=== PATIENT | female | born 1950 | race Caucasian/White ===

== ENCOUNTER 2018-07-28 10:00 | Outpatient (RCR) | payer MEDICARE, OTHER, SELFPAY | END 2018-08-15 09:09 | LOC: CAR 10:00 | PROVIDERS: PCP Internal Medicine; Visit Provider Internal Medicine Cardiovascular Disease | DX: I20.9 Angina pectoris, unspecified (principal) | CPT/HCPCS: 93798 ==

== ENCOUNTER 2021-08-07 15:54 | Emergency (ER) | payer MEDICARE, OTHER, SELFPAY ==
[2021-08-07 16:43] VITALS: BP 185/75; PULSE 65; RESP 16; TEMP 36.2; O2SAT 99; BMI 24.1
--- NOTE | 2021-08-07 16:48 | PC.NURSE ---
History of 2 heart attacks and 4 stents (age 56 and 67)
--- NOTE | 2021-08-07 16:55 | DI.RAD.S_ITS ---
PROCEDURE: XR CHEST 1V INDICATIONS: chest pain TECHNIQUE: One view of the chest was acquired. COMPARISON: None. FINDINGS: Surgical changes and devices: Right upper quadrant surgical clip. Lungs and pleura: Lungs are clear. No pleural effusions or pneumothorax. Mediastinum: Mediastinal contours appear normal. Heart size is normal. Moderate aortic atherosclerotic calcifications. Bones and chest wall: No suspicious bony lesions. Overlying soft tissues appear unremarkable. IMPRESSION: No acute cardiopulmonary abnormality. Dictated by: Daniel Aranda M.D. on 08/07/2021 at 17:26 Approved by: Daniel Aranda M.D. on 08/07/2021 at 17:26
[2021-08-07 17:31] LABS: Add Manual Diff / Slide Review NO; Basophils Absolute Auto 100 /uL (0-100); Basophils Percent Auto 1.4 % (0-2); Eosinophils Absolute Auto 100 /uL (0-450); Eosinophils Percent Auto 1.7 % (2-4); Hematocrit 37.7 % (36-46); Hemoglobin 12.6 g/dL (12.0-16.0); Lymphocytes Absolute Auto 2100 /uL (1100-4500); Lymphocytes Percent Auto 28.7 % (25-40); Mean Corpuscular HGB Conc 33.5 % (30-36); Mean Corpuscular Volume 86.4 fL (80-100); Monocytes Absolute Auto 600 /uL (0-900); Monocytes Percent Auto 7.7 % (3-14); Neutrophils Absolute Auto 4500 /uL (1500-7000); Neutrophils Percent Auto 60.5 % (50-75); Platelet Count 259 X10^3/uL (150-400); Red Blood Cell Count 4.36 X10^6/uL (4.0-5.2); Red Cell Distribution Width 13.6 % (11.6-14.8); White Blood Cell Count 7.4 X10^3/uL (4.5-11.0)
[2021-08-07 17:42] LABS: Alanine Aminotransferase 17 IU/L (<35); Albumin 4.2 g/dL (3.5-5.0); Albumin Globulin Ratio 1.2 (1.0-2.8); Alkaline Phosphatase 51 U/L (38-126); Aspartate Aminotransferase 29 IU/L (14-36); BUN Creatinine Ratio 16.7 (6-22); Bilirubin Total 0.5 mg/dL (0.2-1.3); Blood Urea Nitrogen 12 mg/dL (7-17); Calcium 8.8 mg/dL (8.4-10.2); Carbon Dioxide 29 mmol/L (22-32); Chloride 104 mmol/L (98-107); Creatine Kinase 55 U/L (30-135); Estimated Glomerular Filt Rate > 60 mL/min (>60); Globulin 3.5 g/dL (1.7-4.1); Glucose 150 mg/dL (80-110); Lipase 168 U/L (23-300); Magnesium 1.7 mg/dL (1.6-2.3); Potassium 4.5 mmol/L (3.4-5.1); Sodium 142 mmol/L (137-145); Total Protein 7.7 g/dL (6.3-8.2)
[2021-08-07 17:51] LABS: HEMOLYSIS 76 (0-50)
[2021-08-07 17:54] LABS: Troponin I < 0.012 ng/mL (0.01-0.034)
[2021-08-07 21:12] VITALS: O2SAT 99
[2021-08-07 21:13] VITALS: BP 177/72; PULSE 62; O2SAT 99
[2021-08-07 21:30] VITALS: PULSE 61; O2SAT 97
--- NOTE | 2021-08-07 21:40 | ED_ITS ---
HPI - General Adult General Chief complaint: Syncope Stated complaint: 2 Episodes Blacking Out Time Seen by Provider: 08/07/21 21:25 Source: patient Mode of arrival: Ambulatory History of Present Illness HPI narrative: 71-year-old female who arrives the emergency department today for to episodes that occurred yesterday. She states on 2 separate episodes 1 time when she was in the car with her granddaughter. She states that she felt like she fell asleep in the car. Her granddaughter asked if she was okay and she woke up. She feels like that she was only asleep for a few seconds/minutes when she was woken up by her granddaughter. There was no shaking like activity. She was not confused afterwards. She had no prodrome will symptoms. She states that later in the day she was sitting on the toilet and which she thinks fell asleep once again. This time she was unsure how long that she was asleep but a potentially was close to an hour. She was woken up when her daughter knocked on the bathroom door. She stated that the daughter told her that she was sitting upright on the toilet. Patient states she does not remember the event. Apparently she was somewhat confused afterwards but then very quickly regained senses of where she was. Again no prodrome will symptoms. She has no episodes since then. She did not come into the emergency department until today when she was convinced to come in by the family. She currently has no symptoms. Related Data Allergies Allergy/AdvReac Type Severity Reaction Status Date / Time Penicillins Allergy Verified 08/07/21 16:42 Review of Systems Review of Systems ROS Unobtainable: All systems reviewed & are unremarkable except as noted in HPI and below Patient History Medical History Coronary artery disease Social History Smoking Status: Former smoker Smoking Status: Former smoker alcohol intake frequency: holidays/special occasions only Alcohol type: wine Substance Use Type: does not use Exam Initial Vital Signs Initial Vital Signs: Vital Signs Temperature 97.2 F L 08/07/21 16:43 Pulse Rate 65 08/07/21 16:43 Respiratory Rate 16 08/07/21 16:43 Blood Pressure 185/75 H 08/07/21 16:43 Pulse Oximetry 99 08/07/21 16:43 Const General: cooperative, healthy appearing, comfortable, well developed and well groomed HENNC Head: normal to inspection and normocephalic Eyes Pupils: PERRL EOM: EOM intact bilaterally Resp Effort & Inspection: normal respiratory effort Auscultation: clear to auscultation bilaterally Cardio Rate: regular rate Rhythm: regular rhythm GI Inspection: normal to inspection Skin General: no rashes or lesions noted Neuro General: patient alert, patient awake, patient oriented x3 and moves all extremities Cranial Nerves: CN's II-XI intact bilaterally Cognition: normal cognition Speech: speech normal Gait: normal gait Motor: muscle tone normal throughout Extrem General: normal to inspection and capillary refill normal Psych Appearance: grossly normal and well kempt Course Orders Ordered: ED Orders 08/07/21 16:55 XR chest 1V Stat EKG-12 Lead Stat 08/07/21 17:00 Complete Blood Count AUTO DIFF Stat Comprehensive Metabolic Panel Stat Lipase Stat Magnesium Stat Troponin & CK Cardiac Panel Stat Vital Signs Vital signs: Vital Signs - 8 hr 08/07/21 21:12 08/07/21 21:13 08/07/21 21:30 Pulse Rate 62 61 Respiratory Rate Blood Pressure 177/72 H Pulse Oximetry 99 99 97 08/07/21 21:51 Pulse Rate 61 Respiratory Rate 22 Blood Pressure 180/75 H Pulse Oximetry 96 Medical Decision Making Lab Data Lab results reviewed: Yes I reviewed the patient's lab results. Result diagrams: 08/07/21 17:00 08/07/21 17:00 Labs: Lab Results 08/07/21 08/07/21 Range/Units 17:00 17:00 WBC 7.4 (4.5-11.0) X10^3/uL RBC 4.36 (4.0-5.2) X10^6/uL Hgb 12.6 (12.0-16.0) g/dL Hct 37.7 (36-46) % MCV 86.4 (80-100) fL MCH 29.0 (26-34) PG MCHC 33.5 (30-36) % RDW 13.6 (11.6-14.8) % Plt Count 259 (150-400) X10^3/uL Neut % (Auto) 60.5 (50-75) % Lymph % (Auto) 28.7 (25-40) % [place] % (Auto) 7.7 (3-14) % Eos % (Auto) 1.7 L (2-4) % Baso % (Auto) 1.4 (0-2) % Neut # (Auto) 4500 (0468-4230) /uL Lymph # (Auto) 2100 (1778-4174) /uL [place] # (Auto) 600 (0-900) /uL Eos # (Auto) 100 (0-450) /uL Baso # (Auto) 100 (0-100) /uL Sodium 142 (137-145) mmol/L Potassium 4.5 (3.4-5.1) mmol/L Chloride 104 (98-107) mmol/L Carbon Dioxide 29 (22-32) mmol/L BUN 12 (7-17) mg/dL Creatinine 0.72 (0.52-1.04) mg/dL Estimated GFR > 60 (>60) mL/min BUN/Creatinine Ratio 16.7 (6-22) Glucose 150 H (80-110) mg/dL Calcium 8.8 (8.4-10.2) mg/dL Magnesium 1.7 (1.6-2.3) mg/dL Total Bilirubin 0.5 (0.2-1.3) mg/dL AST 29 (14-36) IU/L ALT 17 (<35) IU/L Alkaline Phosphatase 51 (38-126) U/L Total Creatine Kinase 55 (30-135) U/L CK-MB (CK-2) TNP CK-MB (CK-2) Rel Index TNP Troponin I < 0.012 (0.01-0.034) ng/mL Total Protein 7.7 (6.3-8.2) g/dL Albumin 4.2 (3.5-5.0) g/dL Globulin 3.5 (1.7-4.1) g/dL Albumin/Globulin Ratio 1.2 (1.0-2.8) Lipase 168 (23-300) U/L Imaging Data Chest x-ray: Radiologist's Impression: [address] [address] XRay Report Signed Patient: Svitlana Melendez MR#: [id number] : 1950 Acct:[id number] Age/Sex: 71 / F Date of Service: 08/07/21 Loc: ED Accession Number: [id number] ?? Procedure: XR chest 1V Ordering Provider: Jhonathan Colon MD PROCEDURE:? XR CHEST 1V ? INDICATIONS:? chest pain ? TECHNIQUE:? One view of the chest was acquired.? ? COMPARISON:? None. ? FINDINGS:? ? Surgical changes and devices:? Right upper quadrant surgical clip.? ? Lungs and pleura:? Lungs are clear.? No pleural effusions or pneumothorax.? ? Mediastinum:? Mediastinal contours appear normal.? Heart size is normal.? Moderate aortic atherosclerotic calcifications. ? Bones and chest wall:? No suspicious bony lesions.? Overlying soft tissues appear unremarkable.? ? IMPRESSION:? No acute cardiopulmonary abnormality. ? ? Dictated by: Daniel Aranda M.D. on 08/07/2021 at 17:26 ? ? Approved by: Daniel Aranda M.D. on 08/07/2021 at 17:26?? ECG Data Attestation: I personally reviewed and interpreted this ECG as follows: Interpretation: Sinus rhythm Ventricular rate is 60 Normal axis Normal QRS Normal QTC No ST T wave changes MDM Narrative Medical decision making narrative: Currently has a normal neurologic exam. EKG is unremarkable. Vital signs unremarkable. Labs are unremarkable. Patient does states that she has felt very exhausted and she potentially just fell asleep during these 2 episodes. Does not appear that she had any seizure-like activity. Low suspicion for TIA. Low suspicion for CVA. Also low suspicion for cardiac ischemia. We did discuss the possibility of arrhythmias however patient had no prodrome will symptoms associated with these that would make me concerned about this type of etiology. Also considered potentially blood pressure issues/orthostasis however it did not appear that she was changing positions at the time of the events. I do feel that we can hold on further workup for now as I have low suspicion for an emergent issue. Will have her contact her primary doctor for follow-up. She did expressed understanding of the lack of definitive diagnosis is the cause of her symptoms from yesterday. She was given strict return precautions. She expressed understanding and agreement. Discharge Plan Departure Patient Disposition: Home Clinical Impression: Passed out Instructions: Fainting Activity Restrictions/Additional Instructions: I do recommend that you continue to take all of your medications as directed. Contact your primary doctor for a follow-up. Return to the emergency department for any new or worsening symptoms. Referrals: Thomas Amor MD [Primary Care Provider] -
[2021-08-07 21:51] VITALS: BP 180/75; PULSE 61; RESP 22; O2SAT 96
== END 2021-08-07 21:58 | disposition home or self-care (01) ==
PROVIDERS: Emergency Medicine; Emergency Provider Emergency Medicine; PCP Internal Medicine; Referring Provider Internal Medicine Cardiovascular Disease
DX: R55 Syncope and collapse (principal); Z87.891 Personal history of nicotine dependence
CPT/HCPCS: 71045; 80053; 82550; 83690; 83735; 84484; 85025; 93005; 99281; 99284

== ENCOUNTER → 2022-05-22 08:48 | Outpatient (CLI) | payer MEDICARE, OTHER, SELFPAY ==
--- NOTE | 2022-05-22 | DI.NM.S_ITS ---
PROCEDURE: NM PACHECO PERF SPECT REST & STR Rest and exercise myocardial perfusion SPECT with gated imaging and ejection fraction RADIOPHARMACEUTICAL: 12.1 mCi Tc-99m sestamibi IV at rest and 26.7 mCi Tc-99m sestamibi IV at peak exercise. A 1-[id number]-[id number] was performed. INDICATIONS: Dyspnea TECHNIQUE: Radiopharmaceutical was injected at peak stress test, and also at rest. SPECT images were obtained. SPECT myocardial perfusion images were displayed in short axis, horizontal long axis, and vertical long axis views. Gated images were reviewed using [employer] software. COMPARISON: None. CARDIAC STRESS: A standard Messi treadmill exercise tolerance test was performed by the patient under the supervision of an attending staff. The patient exercised for 6 minutes and 0 seconds; 7.0 METS; functional aerobic impairment (BARRETT) is -9%. Hemodynamic data: Maximum blood pressure 182/90. Maximum heart rate 133 bpm (90% peak predicted). Symptoms: Patient described right-sided chest, neck and arm pain that was similar to prior angina. EKG: Rest ECG sinus rhythm. Stress ECG sinus tachycardia, 1.5 to [address] segment depressions leads II, III, aVF and V3 to V6. FINDINGS: Raw data: There is good myocardial labeling by radiotracer. No significant motion artifacts. Wkxl-jr-dtyeu ratio is 0.25 (normal is less than 0.38 for sestamibi tracer, and less than 0.50 for thallium tracer). Left ventricle function: Gated images demonstrate normal left ventricle wall thickening. No segmental wall motion abnormality. No transient ischemic dilation; TID is 1.0 (normal less than 1.3). The left ventricle resting end-diastolic volume is 53 mL. Left ventricle stress ejection fraction is > 75%; normal values are above 45%. Myocardial perfusion: There is normal distribution of activity in the left and right ventricular myocardium. No fixed or reversible perfusion defects. IMPRESSION: Intermediate risk study. While there is no evidence of inducible ischemia or scar on SPECT imaging, the patient's exercise ECG was abnormal and she did develop symptoms with exercise that were similar to prior angina prompting the test to be stopped. Normal left ventricular size and function. Normal hemodynamic response to exercise. Dictated by: Naina Hayes D.O. on 05/22/2022 at 16:40 Approved by: Naina Hayes D.O. on 05/22/2022 at 16:49
== END ==
PROVIDERS: PCP Internal Medicine; Referring Provider Nurse Practitioner; Visit Provider Nurse Practitioner
DX: R06.00 Dyspnea, unspecified (principal); I25.118 Atherosclerotic heart disease of native coronary artery with other forms of angina pectoris; Z95.5 Presence of coronary angioplasty implant and graft; I25.2 Old myocardial infarction; E78.5 Hyperlipidemia, unspecified; I10 Essential (primary) hypertension; I25.5 Ischemic cardiomyopathy
CPT/HCPCS: 78452; 93017; A9502

== ENCOUNTER → 2022-06-11 09:48 | Outpatient (CLI) | payer MEDICARE, OTHER, SELFPAY ==
--- NOTE | 2022-06-17 10:17 | PM.PFT.1 ---
Pulmonary Function Test Referral & Results Date Patient Seen: 07/09/22 Requesting provider: Dpiesh Hopkins Results: The spirometry demonstrates an FVC of 1.90 L which is 75% of predicted. The FEV1 was measured at 1.49 L which is 70% of predicted. The FEV1/FVC ratio was 78 which is 104% of predicted. Following the administration of bronchodilator there was no notable change. Lung volumes show an SVC of 1.98 L which is 79% of predicted. The diffusing capacity was measured at 13.38 which is 66% of predicted. No hemoglobin value was provided, so no correction for potential anemia could be made, if appropriate. The maximum voluntary ventilation was minimally reduced Interpretation: This study demonstrates possibly very mild obstructive lung disease based on minimal reduction in FEV1 although FEV1/FVC ratio is preserved and there is no evidence of benefit following bronchodilator administration There is also a very minimal reduction in lung volumes suggest the possibility of very minimal restrictive lung disease, which might explain some of the abnormality in the FEV1 above There is a moderate or mild reduction in diffusing capacity suggesting the presence of [id number] disease at the capillary alveolar level Clinical correlation suggested
== END ==
PROVIDERS: PCP Internal Medicine; Referring Provider Nurse Practitioner; Visit Provider Nurse Practitioner
DX: R06.02 Shortness of breath (principal)
CPT/HCPCS: 94060; 94726; 94729